=== PATIENT | male | born 1935 | race Caucasian/White ===

== ENCOUNTER 2022-09-10 10:27 | Day surgery (SDC) | payer MEDICARE, BC, SELFPAY ==
[2022-09-10] VITALS (26 sets, daily range): BP systolic 106–154; BP diastolic 11–102; PULSE 60–98; RESP 12–20; TEMP 35.6–36.6; O2SAT 96–100; BMI 25.0
[2022-09-10] MEDS: LACTATED RINGERS 1000 ML 1,000 ML 100 ML IV ×2 (11:00→14:44)
[2022-09-10 12:32] LABS: INR 1.06 (0.91-1.10); Prothrombin Time 14.4 Seconds
--- NOTE | 2022-09-10 12:42 | CRLHL7_ITS ---
For Patients: As a result of the Century Cures Act, medical imaging exams and procedure reports are released immediately into your electronic medical record. You may view this report before your referring provider. If you have questions, please contact your health care provider. Indication: Postop Technique: Two views left knee Findings/Impression: Hardware from a left total knee arthroplasty is in satisfactory position. Bone alignment is normal. No sign of acute fracture. Postop changes are within normal limits. Additional hardware along the medial and lateral distal femur. Dictated by Arcadio Costa MD @ 09/11/2022 8:38:19 AM (Electronically Signed)
[2022-09-10] MEDS: ACETAMINOPHEN 500 MG TABLET 1000 MG PO ×2 (13:34→20:10)
[2022-09-10] MEDS: OXYCODONE (CR) 10 MG TAB.ER.12H PO (13:34)
[2022-09-10] MEDS: CELECOXIB 200 MG CAPSULE PO ×2 (13:35→20:10)
[2022-09-10] MEDS: MIDAZOLAM HCL 1 MG/ML inj IVP (13:40)
[2022-09-10] MEDS: fentaNYL 100 MCG/2 ML inj IVP (13:40)
--- NOTE | 2022-09-10 13:44 | P.NB_ITS ---
Nerve Block Nerve Block Time Seen by Provider: 13:42 Date Seen: 09/10/22 Type of block requested by surgeon for post-operative analgesia: adductor canal Side: left Time out performed: Yes Verification of patient name: Yes Verification of date of : Yes Site marking: site marked Name of person performing procedure: Memo Continuous monitoring Was continuous monitoring of O2 sat, B/P, quality assurance monitor body, recorded every 15 minutes?: Yes Procedure Checklist: sterile prep, needles and gloves Ultrasound guided. Images saved: Yes Medications given in 5ml increments after negative aspiration: Ropivicaine %: 0.5 mL: 20 Needle gauge: 20 Decadron (mg): 10 Precedex (mcg): 25 Patient tolerated procedure well: Yes Additional comments: Needle noted adjacent to nerve Block Charges Block Charge (with Pro Fee): Femoral Nerve Use of Ultrasound Machine for Block: Yes- US Guidance/pain block
--- NOTE | 2022-09-10 13:44 | W.PM.NB ---
Nerve Block Nerve Block Time Seen by Provider: 13:42 Date Seen: 09/10/22 Type of block requested by surgeon for post-operative analgesia: geniculars Side: left Time out performed: Yes Verification of patient name: Yes Verification of date of : Yes Site marking: site marked Name of person performing procedure: Memo Continuous monitoring Was continuous monitoring of O2 sat, B/P, access coordinator, recorded every 15 minutes?: Yes Procedure Checklist: sterile prep, needles and gloves Medications given in 5ml increments after negative aspiration: Ropivicaine %: 0.5 mL: 9 Needle gauge: 25 Patient tolerated procedure well: Yes Block Charges Block Charge (with Pro Fee): Genicular Nerve Block Use of Ultrasound Machine for Block: No
--- NOTE | 2022-09-10 13:49 | SUR.PREOP ---
TIME?OUT:?1339 PT/RN/MDA?VERIFICATION?OF?SURGICAL?SITE,?PROCEDURE,?AND?CONSENT OBTAINED?PRIOR?TO?INVASIVE?PROCEDURE.
[2022-09-10] MEDS: CEFAZOLIN 2 GM in 0.9 % SODIUM CHLORIDE Mini-bag 100 ML IVPB ×2 (14:03→21:43)
[2022-09-10] MEDS: TRANEXAMIC ACID 100 MG/ML INJ 1000 MG IV (14:03)
--- NOTE | 2022-09-10 16:48 | PM.ORPRC ---
Procedure Note Date of procedure: 09/10/22 Procedure: PREOPERATIVE DIAGNOSIS: 1. Left knee osteoarthritis, primary, severe POSTOPERATIVE DIAGNOSIS: 1. Left knee osteoarthritis, primary, severe 2. Medial femoral epicondyle/medial femoral egg shell avulsion due to severely frail/osteoporotic mg PROCEDURE: 1. Left total knee arthroplasty 2. Left medial femoral epicondylar/medial femoral eggshell avulsion ORIF with small frag plate and screws as well as 2 syndesmosis tight rope knotless devices SURGEON: Baldemar Holden MD. DIRECTOR FIXED INCOME: Derek Vigil PA-C - Of note, a skilled certified physician assistant was critical for this case to aid in patient positioning, tissue retraction, limb manipulation/positioning, and closure. ANESTHESIA: Spinal anesthetic EBL: 50ml IMPLANTS: DePuy J&J all cemented TKA - Attune PS femur size 7, size 7 tibia, 5 poly spacer, 41mm patella Arthrex knotless syndesmosis tight rope so (x2); Synthes 1/3 tubular locking 5 hole plate with 3.5 mm locking screws (x2). Additionally, a 2 hole 1/3 tubular plate was utilized on the distal lateral femoral condyle as a large washer for these knotless tight rope devices. TOURNIQUET: 131 minutes at 300 torr COMPLICATIONS: Medial femoral epicondyle/medial femoral egg shell avulsion due to severely frail/osteoporotic bone requiring ORIF INDICATIONS: The patient is a pleasant 87-year-old male who has experienced severe left knee pain and difficulty bearing weight. Workup included x-rays which revealed severe osteoarthrosis in the knee. Given the deformity, the dysfunction, and the pain, as well as the failure of nonoperative management, recommendation was made for surgery. FINDINGS: Severely arthritic medial compartment with [id number] joint space loss and erosion into the medial femur and tibia. Significant chondromalacia patellofemoral and lateral compartments as well. Large effusion upon entering the joint. Severely osteoporotic/frail bone that easily was washed away during irrigation phase of prep. In addition, the medial femoral epicondyle/medial femoral eggshell cortical fragment hinged off from distal towards proximal with the hinge along the medial the femur at the flare. It was felt to be unstable and since the MCL attached to this, it was felt prudent to repair this. Thus, intraoperatively a 1/3 tubular locking plate was selected and 1st, 2 tight rope devices were passed in a diverging manner to a 2 hole plate on the lateral femoral side to act like a washer on both aspects. This allowed us to compress that medial femoral eggshell cortical avulsion. Then, 2 separate locking screws were placed within the plate to help with added security of this plate. Throughout the rest the case, the fractured fragment remained stable even with stress to valgus position. DESCRIPTION OF PROCEDURE: Following a thorough discussion of risks, benefits, and alternatives consent was obtained and the left knee was marked. The patient was brought to the operating room and placed supine on the operating table. Induction of anesthesia was undertaken. 2 g IV Ancef and 1 g tranexamic acid was administered within 1 hr of incision preoperatively. Proper time-out was performed identifying proper patient, site, procedure. The operative extremity was prepped and draped in the appropriate sterile fashion using ChloraPrep after the patient was positioned supine with all bony prominences well padded. A longitudinal, anterior, midline skin incision was made starting approximately 3cm proximal to the superior pole of the patella and advanced distal to the tibial tubercle. A median parapatellar arthrotomy was created. A medial subperiosteal sleeve was created with knife, fair elevator and curved osteotome. The retropatellar fatpad was resected and the synovium in the suprapatellar pouch excised to visualize the anterior femoral cortex. Femoral preparation was performed via an intramedullary guide. Step drill allowed access into the femoral canal. The distal cutting guide was placed with 5? of valgus and 11 mm cut on the distal femur due to a 15 degree flexion contracture. Femur was sized using a anterior referencing guide in 3? of external rotation. This found have a best fit with the sizing noted above. The 4 in 1 cutting block was then placed, and the distal femur shaped accordingly. The box cut was then created and the trial implant inserted to confirm appropriate fit. During the femoral preparation, it was noted that the medial femoral epicondyle/cortex had fractured and avulsed from the rest of the femur. It was still hinged slightly more proximally near the flare of the distal femur. This piece did not displace substantially, but it did hinge and therefore was felt to be unstable. As such, decision was made to fix and stabilize this medial cortical eggshell avulsion since the MCL attachment was a part of this. We selected a 5 hole 1/3 tubular locking plate and contoured it to the medial femoral flare. 2 holes were distal on the avulsed eggshell fragment. 3 holes were more proximal along the distal femoral diaphysis/metadiaphysis. 2 separate knotless tight rope devices were passed in a converging fashion. These were passed in a 2 hole plate was placed along the lateral distal femoral cortex to act like a large washer. After this compression was achieved, 2 separate locking screws were placed within the medial distal plate to aid in its security to the cortex. The knee was placed through range of motion and this medial femoral eggshell component was found to be stable with no displacement or rotation. We turned our attention to the proximal tibia. Extramedullary guide was utilized for cutting with the goal of being 90 degree cut from the mechanical axis of the tibia in the varus/valgus plane utilizing tibial crest as the primary alignment. Initially a 2 mm resection was performed from the medial tibial plateau. Ultimately, balancing was achieved in both flexion and extension in both varus and valgus. The knee was able to achieve full extension as well comfortably. The patella was initially measured and found have a thickness of 24 mm. It was resected back to approximately 14 mm. It was sized to be a best fit with as noted above. This was drilled, trial placed. All trials were placed and found to have an excellent stability and balance. At this stage, trial implants were removed, the knee was thoroughly irrigated with normal saline, and the cement was mixed. After irrigation, the knee was thoroughly dried, and cement placed, with the real tibial and femoral implants placed along with the patella. Trial poly spacer was placed and confirmed to have excellent range of motion and full extension, and the real poly spacer opened and inserted. All extra cement was removed, and a 3 min Betadine soak performed. Finally, a final irrigation round with normal saline was performed. Again, the knee was placed through range of motion as well as stress to varus and valgus positions at 0, 30, and 60 with no displacement of the medial femoral egg shell cortical avulsion piece. The plating and screws and tightrope devices were holding it stable. Closure performed with 0 PDS and #0 Stratafix for the quad tendon/retinaculum. 2-0 Vicryl/Stratafix for the subcutaneous and 4-0 Monocryl for subcuticular closure. Dressings were applied and the patient was awoken from anesthesia after the tourniquet deflated and transferred the PACU in stable condition. A skilled certified physician assistant was critical for this case to aid in patient positioning, tissue retraction, bone exposure, limb manipulation/positioning, patient safety, and closure. PLAN: 1. Weight bear as tolerated operative extremity. 2. 23 hr perioperative antibiotics. 3. Ice. 4. PT/OT consults for ambulation assistance/mobility education. 5. Social work consult for discharge planning. 6. DVT prophylaxis with at SCDs, Aman Shaw, and warfarin (preoperative medication).
--- NOTE | 2022-09-10 17:32 | W.ANESCHARGE ---
Anesthesia Charges Start Date/Time Anesthesia Start Date: 09/10/22 Anesthesia Start Time: 13:53 Stop Date/Time Anesthesia Stop Date: 09/10/22 Anesthesia Stop Time: 17:30 Summary Emergency: No Extremes of Age: Over 72-CPT [address]35
--- NOTE | 2022-09-10 19:05 | PC.NURSE ---
End of shift note: Patient was a post op today at 1800. Denies nausea. Has a little ache on top of knee but this is tolerable. Has knee brace in locked position. Derek will come and adjust it in the morning. Incision is clean, dry and intact. Pulses are strong, color is pink, cap refill within normal limits. Patient is able to feel lower extremities and can feel as well. PIV is patent and intact. Tolerating a regular diet. Irregular heart rate but controlled. Does drink 3 beers daily. No signs of withdrawal at this time. Will start Coumadin this evening. Plans to go home with and brother tomorrow.
--- NOTE | 2022-09-10 19:14 | PM.IMCN1 ---
Date of Consult Patient: Other Consult date: 09/10/22 Primary Care Provider: Not a Local Provider Consult Narrative Reason for consult: Medical management of comorbidities Narrative: Monty Valladares is a 87 year old male who presented to the hospital today for an elective left TKA. There were no surgical or anesthetic complications noted during procedure. Patient's H&P reviewed, PCP is at the [facility]. Past medical history significant for: Rate control atrial fibrillation (anticoagulated on Coumadin), essential hypertension, PVD, daily alcohol use. In addition to his PCP, he follows with [facility]. History of blood clots: No Postoperative plan: Home with . 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 He quit smoking many years ago, drinks 3 beers daily. Denies history of withdrawal. Review of Systems Status of ROS: Reports: 10 or more systems reviewed and unremarkable except as noted in History and below PFSH PFSH Medical History (Updated 09/10/22 @ 19:22 by Germania Fong MD) A-fib CAD (coronary artery disease) Hypertension Surgical History (Updated 09/10/22 @ 19:13 by Germania Fong MD) H/O elbow surgery H/O knee surgery Family History (Updated 08/28/22 @ 09:40 by Candy Galeano RN) Mother H/O cancer of gall bladder Sister History of cancer of lymphatic system in adulthood Brother Prostate cancer Heart valve replaced Social History Smoking Status: Former smoker What tobacco products do you use: cigarettes Smoking quit date/years: >15 years ago Do you use any of these nicotine containing products: None How often do you have a drink containing alcohol: 4 or more times a week Alcohol type: beer How many standard drinks containing alcohol do you have on a typical day: 3 or 4 How often do you have six or more drinks on one occasion: Never AUDIT-C Alcohol total score: 5 Non-prescribed substance use: denies use Caffeine: Yes (1 cup/AM) service: No Meds Home Medications and Allergies Home Medications Medication Instructions Recorded Confirmed Type furosemide 20 mg tablet 60 mg PO DAILY 08/13/22 09/10/22 History warfarin 5 mg tablet 5 mg PO QPM 08/13/22 09/10/22 History cholecalciferol (vitamin D3) 25 25 mcg PO DAILY 09/06/22 09/10/22 History mcg (1,000 unit) capsule (Vitamin D3) emollient (Vanicream topical) 1 applic topical HS 09/06/22 09/10/22 History multivitamin with minerals-folic 1 tab PO DAILY 09/06/22 09/10/22 History acid 200 mcg chewable tablet (Adult Multivitamin Gummies) triamcinolone acetonide 0.1 % 1 applic topical HS 09/06/22 09/10/22 History topical cream Home Medication Comments: Warfarin was held for 5 days preoperatively, will resume tonight. Allergies Allergy/AdvReac Type Severity Reaction Status Date / Time No Known Drug Allergies Allergy Verified 09/10/22 11:09 Exam Narrative: Exam Narrative: GEN: Alert and oriented, nontoxic in appearance HEENT: Normal external ears, EOMIs bilaterally, no scleral icterus CV: Rate controlled atrial fibrillation R: LCTA bilaterally without concerning wheezing, rales, or rhonchi, air movement adequate Ext: wwp, no concerning edema Skin: No concerning skin lesions or rashes on exposed skin Neuro: Nonfocal Psych: Appropriate Const: Vital Signs, click to edit/add: Vital Signs - 24 hr 09/10/22 12:05 09/10/22 13:40 09/10/22 13:45 Temperature 98 F Pulse Rate 61 64 64 Pulse Rate [Left B rachial] Respiratory Rate 16 16 16 Blood Pressure 148/91 H 154/88 H 145/88 H Blood Pressure [Ri ght Arm] Pulse Oximetry 98 98 100 Oxygen Delivery Me thod Room Air Nasal Cannula Nasal Cannula Oxygen Flow Rate 2 2 09/10/22 17:26 09/10/22 17:30 09/10/22 17:35 Temperature 96.6 F L 96.6 F L 96.6 F L Pulse Rate 73 77 65 Pulse Rate [Left B rachial] Respiratory Rate 15 15 12 Blood Pressure 106/68 111/76 110/83 Blood Pressure [Ri ght Arm] Pulse Oximetry 97 98 Oxygen Delivery Me thod Room Air Room Air Room Air Oxygen Flow Rate 09/10/22 17:40 09/10/22 17:45 09/10/22 17:50 Temperature 96.6 F L 96.6 F L 96.6 F L Pulse Rate 79 63 60 Pulse Rate [Left B rachial] Respiratory Rate 15 20 20 Blood Pressure 110/79 108/80 108/76 Blood Pressure [Ri ght Arm] Pulse Oximetry 97 98 98 Oxygen Delivery Me thod Room Air Room Air Room Air Oxygen Flow Rate 09/10/22 17:55 09/10/22 18:00 09/10/22 18:08 Temperature 96.6 F L 96.5 F L 96.1 F L Pulse Rate 63 70 64 Pulse Rate [Left B rachial] Respiratory Rate 16 16 16 Blood Pressure 121/80 120/79 Blood Pressure [Ri ght Arm] 125/96 H Pulse Oximetry 98 98 Oxygen Delivery Me thod Room Air Room Air Room Air Oxygen Flow Rate 09/10/22 18:15 09/10/22 18:08 09/10/22 18:09 Temperature 96.1 F L Pulse Rate 67 70 Pulse Rate [Left B rachial] 74 Respiratory Rate 16 Blood Pressure 125/90 H Blood Pressure [Ri ght Arm] 125/96 H Pulse Oximetry 99 99 98 Oxygen Delivery Me thod Room Air Oxygen Flow Rate 09/10/22 18:15 09/10/22 18:17 09/10/22 18:30 Temperature Pulse Rate 66 69 67 Pulse Rate [Left B rachial] Respiratory Rate Blood Pressure 111/87 Blood Pressure [Ri ght Arm] Pulse Oximetry 100 99 96 Oxygen Delivery Me thod Oxygen Flow Rate 09/10/22 18:32 09/10/22 18:30 09/10/22 18:33 Temperature 96.1 F L Pulse Rate 93 87 Pulse Rate [Left B rachial] 86 Respiratory Rate 16 16 Blood Pressure 133/86 Blood Pressure [Ri ght Arm] 133/86 Pulse Oximetry 97 99 99 Oxygen Delivery Me thod Room Air Oxygen Flow Rate 09/10/22 18:45 09/10/22 18:47 09/10/22 18:45 Temperature Pulse Rate 98 88 Pulse Rate [Left B rachial] 83 Respiratory Rate 16 16 Blood Pressure 140/95 H Blood Pressure [Ri ght Arm] 140/83 H Pulse Oximetry 99 99 99 Oxygen Delivery Me thod Room Air Oxygen Flow Rate 09/10/22 19:00 Temperature Pulse Rate Pulse Rate [Left B rachial] 80 Respiratory Rate 16 Blood Pressure Blood Pressure [Ri ght Arm] 146/11 H Pulse Oximetry 99 Oxygen Delivery Me thod Room Air Oxygen Flow Rate Assessment and Plan Assessment and plan (1) Total knee replacement status: Status: Acute (2) Hypertension: Status: Acute (3) A-fib: Problem comment: - rate controlled, anticoagulated on Coumadin Status: Acute Plan - routine postoperative cares - prophylaxis and pain management per Orthopedic surgery, restart warfarin this evening - continue home medications (will place holding parameters on home dose of Lasix) - anticipate routine postoperative course, home tomorrow
[2022-09-10] MEDS: WARFARIN 5 MG TABLET PO (20:09)
[2022-09-10] MEDS: SENNOSIDES 1 TAB TABLET 2 TAB PO (20:10)
[2022-09-10] MEDS: OXYCODONE 5 MG TABLET PO ×2 (20:11→23:25)
[2022-09-11] VITALS: BP 128/88; PULSE 78; RESP 18; TEMP 36.5; O2SAT 96
[2022-09-11 03:00] VITALS: BP 116/83; PULSE 78; RESP 18; TEMP 36.5; O2SAT 98
[2022-09-11] MEDS: ACETAMINOPHEN 500 MG TABLET 1000 MG PO ×2 (03:03→08:24)
[2022-09-11] MEDS: OXYCODONE 5 MG TABLET PO ×2 (03:04→06:10)
--- NOTE | 2022-09-11 04:47 | PC.NURSE ---
Shift note -: Pt alert, able to make needs known. Up to BR w/ minimal SBA, moving well. Rating L knee pain 2-5/10 taking scheduled Tylenol along w/ PRN Oxycodone and Cryocuff to op site. L knee drsg CDI, CMS intact, brace in place. Plans to DC home w/ and brother today.
[2022-09-11] MEDS: CEFAZOLIN 2 GM in 0.9 % SODIUM CHLORIDE Mini-bag 100 ML IVPB (06:09)
[2022-09-11 07:00] VITALS: BP 132/73; PULSE 100; RESP 18; TEMP 36.7; O2SAT 98
[2022-09-11 07:00] LABS: Hematocrit 35.1 % (37.0-53.0); Hemoglobin* 11.5 gm/dL (13.5-17.5); Mean Corpuscular Volume 99 fL (80-100); Red Blood Count 3.54 m/uL (4.30-5.90); White Blood Count* 7.92 K/uL (4.50-11.00)
[2022-09-11 07:01] LABS: Basophils Percent Auto 0.1 % (0.0-3.0); Immature Granulocytes Pct Auto 0.8 %; Mean Corpuscular HGB Conc 33 gm/dL (32-36); Mean Corpuscular Hemoglobin 33 pg (26-34); Monocytes Percent Auto 6.6 % (0.0-11.0); Neutrophils Percent Auto 84.5 % (42.0-72.0); Platelet Count* 175 K/uL (140-440); Slide Review Reflex No
[2022-09-11 07:07] LABS: Potassium* 5.5 mmol/L (3.6-5.1); Sodium* 135 mmol/L (135-149)
[2022-09-11 07:08] LABS: Blood Urea Nitrogen* 31 mg/dL (7-30)
[2022-09-11 07:48] LABS: Creatinine* 1.1 mg/dL (0.5-1.5); Est. Creatinine Clearance* 52.29; Estimated Glomerular Filt Rate 66 ml/min
[2022-09-11] MEDS: SENNOSIDES 1 TAB TABLET 2 TAB PO (08:24)
[2022-09-11] MEDS: CELECOXIB 200 MG CAPSULE PO (08:24)
--- NOTE | 2022-09-11 08:28 | P.ORPN_ITS ---
Subjective Subjective Date Seen: 09/11/22 Principal diagnosis: Status postop day 1 left total knee arthroplasty Interval history: Patient reports doing well. No acute events over night. Pain managed with scheduled /PRN medications and ice. Please of posterior knee pain. DVT prophylaxis Coumadin, bilateral knee high Aman stockings, and SCDs. Denies fevers, chills, aches, N/V, CP, SOB/WRIGHT, tachycardia, or lightheadedness. Ortho Exam Narrative Exam Narrative: -Patient appears comfortable; no apparent acute distress -Alert and oriented times 3 -Operative knee moderately swollen; the ankle/foot also moderately swollen; soft tissues supple; no ecchymosis; no erythematous streaking Warmth appropriate -Surgical dressing clean, dry, intact; no drainage -T scope brace in position, this is currently locked in extension -Bilateral calfs soft; no significant swelling, edema, tenderness, erythema, discoloration, warmth, or palpable cords -2+ DP/PT pulses, intact dermatomes and myotomes distally (5/5 strength) Const Vital Signs, click to edit/add: Vital Signs - 24 hr 09/10/22 12:05 09/10/22 13:40 09/10/22 13:45 Temperature 98 F Pulse Rate 61 64 64 Pulse Rate [Left Brachial] Pulse Rate [Pulse Oximeter] Respiratory Rate 16 16 16 Blood Pressure 148/91 H 154/88 H 145/88 H Blood Pressure [Right Arm] Pulse Oximetry 98 98 100 Oxygen Delivery Method Room Air Nasal Cannula Nasal Cannula Oxygen Flow Rate 2 2 09/10/22 17:26 09/10/22 17:30 09/10/22 17:35 Temperature 96.6 F L 96.6 F L 96.6 F L Pulse Rate 73 77 65 Pulse Rate [Left Brachial] Pulse Rate [Pulse Oximeter] Respiratory Rate 15 15 12 Blood Pressure 106/68 111/76 110/83 Blood Pressure [Right Arm] Pulse Oximetry 97 98 Oxygen Delivery Method Room Air Room Air Room Air Oxygen Flow Rate 09/10/22 17:40 09/10/22 17:45 09/10/22 17:50 Temperature 96.6 F L 96.6 F L 96.6 F L Pulse Rate 79 63 60 Pulse Rate [Left Brachial] Pulse Rate [Pulse Oximeter] Respiratory Rate 15 20 20 Blood Pressure 110/79 108/80 108/76 Blood Pressure [Right Arm] Pulse Oximetry 97 98 98 Oxygen Delivery Method Room Air Room Air Room Air Oxygen Flow Rate 09/10/22 17:55 09/10/22 18:00 09/10/22 18:08 Temperature 96.6 F L 96.5 F L 96.1 F L Pulse Rate 63 70 64 Pulse Rate [Left Brachial] Pulse Rate [Pulse Oximeter] Respiratory Rate 16 16 16 Blood Pressure 121/80 120/79 Blood Pressure [Right Arm] 125/96 H Pulse Oximetry 98 98 Oxygen Delivery Method Room Air Room Air Room Air Oxygen Flow Rate 09/10/22 18:15 09/10/22 18:08 09/10/22 18:09 Temperature 96.1 F L Pulse Rate 67 70 Pulse Rate [Left Brachial] 74 Pulse Rate [Pulse Oximeter] Respiratory Rate 16 Blood Pressure 125/90 H Blood Pressure [Right Arm] 125/96 H Pulse Oximetry 99 99 98 Oxygen Delivery Method Room Air Oxygen Flow Rate 09/10/22 18:15 09/10/22 18:17 09/10/22 18:30 Temperature Pulse Rate 66 69 67 Pulse Rate [Left Brachial] Pulse Rate [Pulse Oximeter] Respiratory Rate Blood Pressure 111/87 Blood Pressure [Right Arm] Pulse Oximetry 100 99 96 Oxygen Delivery Method Oxygen Flow Rate 09/10/22 18:32 09/10/22 18:30 09/10/22 18:33 Temperature 96.1 F L Pulse Rate 93 87 Pulse Rate [Left Brachial] 86 Pulse Rate [Pulse Oximeter] Respiratory Rate 16 16 Blood Pressure 133/86 Blood Pressure [Right Arm] 133/86 Pulse Oximetry 97 99 99 Oxygen Delivery Method Room Air Oxygen Flow Rate 09/10/22 18:45 09/10/22 18:47 09/10/22 18:45 Temperature Pulse Rate 98 88 Pulse Rate [Left Brachial] 83 Pulse Rate [Pulse Oximeter] Respiratory Rate 16 16 Blood Pressure 140/95 H Blood Pressure [Right Arm] 140/83 H Pulse Oximetry 99 99 99 Oxygen Delivery Method Room Air Oxygen Flow Rate 09/10/22 19:00 09/10/22 19:30 09/10/22 20:00 Temperature 97.2 F L 96.6 F L Pulse Rate 86 Pulse Rate [Left Brachial] 80 Pulse Rate [Pulse Oximeter] 82 Respiratory Rate 16 18 18 Blood Pressure 154/102 H Blood Pressure [Right Arm] 146/11 H 134/84 Pulse Oximetry 99 98 99 Oxygen Delivery Method Room Air Room Air Room Air Oxygen Flow Rate 09/10/22 21:00 09/10/22 21:00 09/10/22 22:00 Temperature 97.5 F L 97.5 F L 97.5 F L Pulse Rate 84 Pulse Rate [Left Brachial] Pulse Rate [Pulse Oximeter] 92 Respiratory Rate 18 18 18 Blood Pressure 139/92 H Blood Pressure [Right Arm] 139/92 H 137/87 Pulse Oximetry 96 96 97 Oxygen Delivery Method Room Air Room Air Room Air Oxygen Flow Rate 09/10/22 23:00 09/11/22 00:00 09/10/22 23:00 Temperature 97.8 F 97.7 F Pulse Rate Pulse Rate [Left Brachial] Pulse Rate [Pulse Oximeter] 90 78 Respiratory Rate 18 18 Blood Pressure Blood Pressure [Right Arm] 133/84 128/88 Pulse Oximetry 97 96 97 Oxygen Delivery Method Room Air Room Air Oxygen Flow Rate 09/10/22 23:00 09/11/22 03:00 Temperature 97.7 F Pulse Rate Pulse Rate [Left Brachial] Pulse Rate [Pulse Oximeter] 90 78 Respiratory Rate 18 Blood Pressure Blood Pressure [Right Arm] 116/83 Pulse Oximetry 98 Oxygen Delivery Method Room Air Oxygen Flow Rate Assessment and Plan Assessment and plan (1) Total knee replacement status: Problem details: POD 1 left total knee arthroplasty Status: Acute (2) Hypertension: Status: Acute (3) A-fib: Problem details: - rate controlled, anticoagulated on Coumadin Status: Acute (4) Acute blood loss anemia: Problem details: Hgb 11.5, asymptomatic (pt denies CP, SOB/WRIGHT, tachycardia, tachypnea, lightheadedness or dizziness). Status: Acute Plan - Complete 23 hour perioperative antibiotics. - PT/OT consult for education and assistance; please provide assistance and education regarding the T scope brace. May progress therapy without restr ictions due to brace - Social work consult for discharge planning - Prescribed analgesics as needed - T scope brace unlocked 0-110 degrees range of motion free. No pillow propping. Weightbear as tolerated okay while in the brace. - DVT prophylaxis: Coumadin (baseline medication for patient due to AFib), bilateral knee high Aman Hose stockings and SCDs - Anticipation is for discharge to home with spouse and son today 09/11/2022 if the patient remains medically stable, pain is controlled, and they are safe with mobilization.
[2022-09-11] MEDS: FUROSEMIDE 20 MG TABLET 60 MG PO (08:31)
--- NOTE | 2022-09-11 08:33 | PM.DS1 ---
DS: Providers Provider Date Seen: 09/11/22 Date of admission: Med/Surg Recovery 09/10/2022 Primary care physician: Not a Local Provider Consults: 09/10/22 18:36 Consult to Occupational Therapy [CONS] Routine Comment: Reason(s) for OT Consult:: ADLs Prior to Discharge Any Restrictions?:: See Comment Comment: See nursing activity order for any restrictions. Consult to Physical Therapy [CONS] Routine Comment: Ambulate in the somers today. Reason(s) for PT Consult:: TKA TX Protocol POD#0 Any Restrictions?:: See Comment Comment: See nursing activity order for any restrictions. 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 After appropriate preoperative evaluation, the patient underwent left total knee arthroplasty. Intraoperative complication include medial femoral condyle/epicondyle avulsion which was repaired via ORIF. Postoperatively given anticoagulation for deep vein thrombosis prophylaxis - continuation of his Coumadin. They progressed to PT/OT and were felt ready and prepared for discharge to home with appropriate pain medication and anticoagulation medications. Patient will wear T scope brace for the next 6-8 weeks with activities and during sleep to provide additional, for additional support for this healing medial condyle/epicondyle avulsion fracture. Patient is postoperative phase should not be determined by this fracture, fixation, and T scope brace. Status at Discharge Functional status at discharge: uses cane/walker Overall status at discharge: patient is progressing back to baseline Time Spent with Patient Time attestation: Total time spent providing and/or coordinating discharge services: Exam Const: Vital Signs, click to edit/add: Vital Signs - 24 hr 09/10/22 12:05 09/10/22 13:40 09/10/22 13:45 Temperature 98 F Pulse Rate 61 64 64 Pulse Rate [Left B rachial] Pulse Rate [Pulse Oximeter] Respiratory Rate 16 16 16 Blood Pressure 148/91 H 154/88 H 145/88 H Blood Pressure [Ri ght Arm] Pulse Oximetry 98 98 100 Oxygen Delivery Me thod Room Air Nasal Cannula Nasal Cannula Oxygen Flow Rate 2 2 09/10/22 17:26 09/10/22 17:30 09/10/22 17:35 Temperature 96.6 F L 96.6 F L 96.6 F L Pulse Rate 73 77 65 Pulse Rate [Left B rachial] Pulse Rate [Pulse Oximeter] Respiratory Rate 15 15 12 Blood Pressure 106/68 111/76 110/83 Blood Pressure [Ri ght Arm] Pulse Oximetry 97 98 Oxygen Delivery Me thod Room Air Room Air Room Air Oxygen Flow Rate 09/10/22 17:40 09/10/22 17:45 09/10/22 17:50 Temperature 96.6 F L 96.6 F L 96.6 F L Pulse Rate 79 63 60 Pulse Rate [Left B rachial] Pulse Rate [Pulse Oximeter] Respiratory Rate 15 20 20 Blood Pressure 110/79 108/80 108/76 Blood Pressure [Ri ght Arm] Pulse Oximetry 97 98 98 Oxygen Delivery Me thod Room Air Room Air Room Air Oxygen Flow Rate 09/10/22 17:55 09/10/22 18:00 09/10/22 18:08 Temperature 96.6 F L 96.5 F L 96.1 F L Pulse Rate 63 70 64 Pulse Rate [Left B rachial] Pulse Rate [Pulse Oximeter] Respiratory Rate 16 16 16 Blood Pressure 121/80 120/79 Blood Pressure [Ri ght Arm] 125/96 H Pulse Oximetry 98 98 Oxygen Delivery Me thod Room Air Room Air Room Air Oxygen Flow Rate 09/10/22 18:15 09/10/22 18:08 09/10/22 18:09 Temperature 96.1 F L Pulse Rate 67 70 Pulse Rate [Left B rachial] 74 Pulse Rate [Pulse Oximeter] Respiratory Rate 16 Blood Pressure 125/90 H Blood Pressure [Ri ght Arm] 125/96 H Pulse Oximetry 99 99 98 Oxygen Delivery Me thod Room Air Oxygen Flow Rate 09/10/22 18:15 09/10/22 18:17 09/10/22 18:30 Temperature Pulse Rate 66 69 67 Pulse Rate [Left B rachial] Pulse Rate [Pulse Oximeter] Respiratory Rate Blood Pressure 111/87 Blood Pressure [Ri ght Arm] Pulse Oximetry 100 99 96 Oxygen Delivery Me thod Oxygen Flow Rate 09/10/22 18:32 09/10/22 18:30 09/10/22 18:33 Temperature 96.1 F L Pulse Rate 93 87 Pulse Rate [Left B rachial] 86 Pulse Rate [Pulse Oximeter] Respiratory Rate 16 16 Blood Pressure 133/86 Blood Pressure [Ri ght Arm] 133/86 Pulse Oximetry 97 99 99 Oxygen Delivery Me thod Room Air Oxygen Flow Rate 09/10/22 18:45 09/10/22 18:47 09/10/22 18:45 Temperature Pulse Rate 98 88 Pulse Rate [Left B rachial] 83 Pulse Rate [Pulse Oximeter] Respiratory Rate 16 16 Blood Pressure 140/95 H Blood Pressure [Ri ght Arm] 140/83 H Pulse Oximetry 99 99 99 Oxygen Delivery Me thod Room Air Oxygen Flow Rate 09/10/22 19:00 09/10/22 19:30 09/10/22 20:00 Temperature 97.2 F L 96.6 F L Pulse Rate 86 Pulse Rate [Left B rachial] 80 Pulse Rate [Pulse Oximeter] 82 Respiratory Rate 16 18 18 Blood Pressure 154/102 H Blood Pressure [Ri ght Arm] 146/11 H 134/84 Pulse Oximetry 99 98 99 Oxygen Delivery Me thod Room Air Room Air Room Air Oxygen Flow Rate 09/10/22 21:00 09/10/22 21:00 09/10/22 22:00 Temperature 97.5 F L 97.5 F L 97.5 F L Pulse Rate 84 Pulse Rate [Left B rachial] Pulse Rate [Pulse Oximeter] 92 Respiratory Rate 18 18 18 Blood Pressure 139/92 H Blood Pressure [Ri ght Arm] 139/92 H 137/87 Pulse Oximetry 96 96 97 Oxygen Delivery Me thod Room Air Room Air Room Air Oxygen Flow Rate 09/10/22 23:00 09/11/22 00:00 09/10/22 23:00 Temperature 97.8 F 97.7 F Pulse Rate Pulse Rate [Left B rachial] Pulse Rate [Pulse Oximeter] 90 78 Respiratory Rate 18 18 Blood Pressure Blood Pressure [Ri ght Arm] 133/84 128/88 Pulse Oximetry 97 96 97 Oxygen Delivery Me thod Room Air Room Air Oxygen Flow Rate 09/10/22 23:00 12/20/22 03:00 Temperature 97.7 F Pulse Rate Pulse Rate [Left B rachial] Pulse Rate [Pulse Oximeter] 90 78 Respiratory Rate 18 Blood Pressure Blood Pressure [Ri ght Arm] 116/83 Pulse Oximetry 98 Oxygen Delivery Me thod Room Air Oxygen Flow Rate DS: Data Data Completed and Pending Labs on day of discharge: Labs from last 24 hours 09/11/22 09/11/22 09/10/22 05:58 05:58 11:56 WBC 7.92 RBC 3.54 L Hgb 11.5 L Hct 35.1 L MCV 99 MCH 33 MCHC 33 Plt Count 175 Neut % (Auto) 84.5 H Lymph % (Auto) 8.0 L [place] % (Auto) 6.6 Eos % (Auto) 0.0 Baso % (Auto) 0.1 Neut # (Auto) 6.70 Lymph # (Auto) 0.60 L [place] # (Auto) 0.50 Eos # (Auto) 0.00 Baso # (Auto) 0.00 INR 1.06 Sodium 135 Potassium 5.5 H BUN 31 H Creatinine 1.1 Estimated Creat Clear 52.29 Estimated GFR 66 Discharge Plan Discharge Disposition: Home, Self-Care Discharging Surgeon: Baldemar Holden Follow-Up Appointment: 1 week PO with Derek FORMAN Prescriptions: New acetaminophen 500 mg capsule 500 - 1,000 mg PO Q6-8H MDD 3000mg PRNQty: 100 0RF sennosides-docusate sodium [Senna-S] 8.6-50 mg tablet 1 - 4 tab-cap PO BID PRN (Reason: constipation) Qty: 60 0RF Rx Instructions: Hold medication if experiencing loose stools. oxycodone 5 mg tablet 2.5 - 5 mg PO Q4-6H MDD 6 PRN (Reason: pain) Qty: 30 0RF Rx Instructions: Take as needed for postop pain: 2.5mg mild pain, 5mg moderate-severe pain; wean as tolerated. No Action warfarin 5 mg tablet 5 mg PO QPM Label Comments: PER [facility]: EVENING OF PROCEDURE RESUME COUMADIN 7.5 MG THEN 5 MG DAILY [facility] PHONE#[phone] furosemide 20 mg tablet 60 mg PO DAILY Label Comments: TAKE THREE TABLETS BY MOUTH EVERY DAY Adult Multivitamin Gummies 200 mcg tablet,chewable 1 tab PO DAILY cholecalciferol (vitamin D3) [Vitamin D3] 25 mcg (1,000 unit) capsule 25 mcg PO DAILY triamcinolone acetonide 0.1 % cream 1 applic topical HS Rx Instructions: APPLY WITH VANICREAM TO LEGS FOR ITCHING AT BEDTIME emollient [Vanicream] Cream 1 applic topical HS Rx Instructions: APPLY ALONG WITH TRIAMCINOLONE CREAM TO LEGS FOR ITCHING Activity Level: Activity as Tolerated, Weight Bearing as Tolerated, Wear Brace, Use Cane and Use Walker Activity Detail: Wound: ?Do not remove original dressing; we will remove this at first postop visit in 1 week. Only remove dressing if integrity is in question. ?No immersing wound in water; showering okay; light scrub with your hand and body soap, rinse, dab dry ?Sutures are under the skin, will dissolve; allow surgical glue to come off naturally; do not scrub the wound or apply ointments/lotions ?Call our office with any redness that streaks, excessive drainage from the wound, or wound gapping. Ice/Elevate: ?Ice as needed for swelling and discomfort (cryocuff or ice pack); elevate frequently above the heart JACQUI socks: ?Wear for 1 month, remove for 1 hour 3 times per day ?These are frustrating to take on/off, but are important for blood clot prevention for 1 month after surgery Blood Clot Prevention (DVT): ?Medication: Continue Coumadin per [facility] provider Driving: ?Do not drive while taking narcotic pain medication ?Anticipate 4-6 weeks no driving if operative leg is driving leg Dental: ?No elective dental work for 6 months post-op. If there is an urgent/emergent dental need, contact our office for an antibiotic prescription. Smoking/Alcohol: ?Do not smoke; do no drink alcohol especially when taking postoperative oral narcotic medication Seek Care from you Primary Care Provider if you experience the following issues in the postoperative phase and beyond: ?Bacterial infections such as: pneumonia, bacterial skin infection (cellulitis), UTI, high fever, chills unrelated to the operative body part - call your primary care physician urgently for treatment in hopes to protect your health and the metal implant. Referrals: ?PT, OT per patient preference - evaluate treat total knee arthroplasty protocol (gait training, ROM, ADLs) Follow up: ?Ortho surgeon follow-up in 6 weeks; repeat radiographs three views operative knee ?PA-C visit in 1 week *If there are any acute concerns regarding your surgery, please call our orthopedic clinic ([phone]) Wear brace 15/04; may take off for bathing. Also important to wear during sleep. Brace does not need to be locked. Plan is 6-8 weeks wearing the brace to support Discharge Diet: Regular Patient Instructions: Surgical Site Infections (DC) Forms: Work/School Release Follow-up: Provider,Not a Local [Primary Care Provider] - Discharge Orders: Discharge Order (Routine); Ordered 09/11/22 Ordered By: Derek Vigil
[2022-09-11 09:13] VITALS: BP 139/92; PULSE 84; RESP 18; TEMP 36.5
--- NOTE | 2022-09-11 10:10 | PC.NURSE ---
Discharge note: Pt. discharged at 1000. Pt. alert and oriented x4, pleasant and cooperative. Dressing to left knee C/D/I. Brace to left knee intact. Lung sounds clear, VSS. pt. denied any pain until PT visit. 5mg PRN oxy administered, pt. rated pain 5/10. Pt. discharged home, accompanied by and brother. Pt. denies n/v/sob. Discharge instructions given and signed, pt. verbalized understanding. IV removed intact. Belongings list signed.
== END 2022-09-11 10:00 | disposition home or self-care (01) ==
LOC: OR 10:33 → MEDSURG 10:34
PROVIDERS: Visit Provider Orthopaedic Surgery Sports Medicine
PROC: (CPT 27447; principal; 2022-09-10 12:45)
DX: M17.12 Unilateral primary osteoarthritis, left knee (principal); M80.852A Other osteoporosis with current pathological fracture, left femur, initial encounter for fracture; M25.562 Pain in left knee; D62 Acute posthemorrhagic anemia; I48.91 Unspecified atrial fibrillation; I10 Essential (primary) hypertension; Z79.01 Long term (current) use of anticoagulants; I73.9 Peripheral vascular disease, unspecified; I25.10 Atherosclerotic heart disease of native coronary artery without angina pectoris
CPT/HCPCS: 27447; 27599; 01402; 36415; 64447; 64454; 73560; 76942; 82565; 84132; 84295; 84520; 85025; 85610; 97116; 97161; 97165; 97535; 99100; A9270; C1713; C1776; J0690; J1100; J2250; J2370; J2704; J2795; J3010; J7120; L1833